=== PATIENT | male | born 1965 | race African-American/Black ===

== ENCOUNTER 2020-08-18 13:14 | Emergency (ER) | payer OTHER ==
[~2020-08-18] VITALS: Ht 162.6 cm; Wt 61.4 kg
[~2020-08-18 13:14] MED LIST: NO HOME MEDICATIONS
[2020-08-18 13:24] VITALS: TEMP 98.2
[2020-08-18 14:40] VITALS: BP 152/86; PULSE 67
== END 2020-08-18 14:40 | disposition home or self-care (01) ==
LOC: COL.ER 13:14
DX: S92.355A Nondisplaced fracture of fifth metatarsal bone, left foot, initial encounter for closed fracture (principal); F17.210 Nicotine dependence, cigarettes, uncomplicated; V29.9XXA Motorcycle rider (driver) (passenger) injured in unspecified traffic accident, initial encounter